=== PATIENT | female | born 1945 | race Caucasian/White ===

== ENCOUNTER → 2019-08-03 | Day surgery (SDC) | payer MEDICARE, OTHER ==
[~2019-08-03] MED LIST: DEMEROL 50 MG IJ ONE; Lactated Ringers 1,000 ML IV ONE; Sodium Chloride 0.9% 1000 ML 1,000 ML ONE; VERSED 5 MG/5 ML IV ONE; XYLOCAINE 1% HCL 20 ML MDV ONE
[2019-08-03] MEDS: Lactated Ringers 1,000 ML IV SCH (09:43)
[2019-08-03 13:45] VITALS: O2SAT 93
[2019-08-03 14:10] VITALS: BP 140/75; PULSE 87
--- NOTE | 2019-08-03 15:45 | OP ---
SURGERY DATE/TIME: 08/03/2019 1215 PREOPERATIVE DIAGNOSIS: Excision of four lesions under IV sedation. 15 minutes monitored. POSTOPERATIVE DIAGNOSIS: Excision of four lesions under IV sedation. 15 minutes monitored. PROCEDURES: 1) Lesion left clavicle 1.2 cm removed through a 3 cm elliptical excision with closure. 2) Sternal lesion 1.4 cm removed through a 3 cm elliptical excision with closure. 3) Right wrist a 1.5 cm lesion removed through a 2.5 cm elliptical excision with closure. 4) A 1.2 cm lesion on the back through elliptical excision with closure. SURGEON: Santos Murcia M.D. COMPLICATIONS: None. CONDITION: Stable. FINDINGS: I believe the two chest lesions were low grade malignant. The arm lesion and the back lesions were probably benign. DESCRIPTION OF PROCEDURE: Routine prep and drape. IV sedation titrated. Oximetry kept over 90%. Comfort level satisfactory. The above four lesions were excised and closed. The patient tolerated the procedure satisfactorily. Pathology pending.
== END | disposition home or self-care (01) ==
LOC: SDC 09:00
PROVIDERS: ATTEND Surgery
DX: L82.1 Other seborrheic keratosis (principal); L57.0 Actinic keratosis; D68.9 Coagulation defect, unspecified; I11.9 Hypertensive heart disease without heart failure; Z79.899 Other long term (current) drug therapy
CPT/HCPCS: J2175; J2250